=== PATIENT | male | born 1975 | race Caucasian/White ===

== ENCOUNTER 2018-06-03 10:43 | Emergency (ER) | payer OTHER ==
[~2018-06-03] VITALS: Ht 182.9 cm; Wt 104.3 kg
[2018-06-03] MEDS ORDERED: VENTOLIN HFA 1818 GM INH (11:04)
[2018-06-03] MEDS ORDERED: SPIRIVA INH (11:04)
[2018-06-03] MEDS ORDERED: VENLAFAXIN37.5 MG/1 PER TUBE (11:05)
[2018-06-03] MEDS ORDERED: EFFEXOR XR75 MG PO (11:05)
[2018-06-03 11:12] LABS: ABSOLUTE EOSINOPHILS 0.1 thou/uL (0.0-0.7); ABSOLUTE LYMPHOCYTES 1.8 thou/uL (0.8-5.3); ABSOLUTE MONOCYTES 0.5 thou/uL (0.0-1.2); ABSOLUTE NEUTROPHILS 2.8 thou/uL (1.6-8.1); BASOPHILS 0.7 %; EOSINOPHILS 1.9 %; HEMATOCRIT 47.3 % (42.0-52.0); HEMOGLOBIN 16.4 gm/dL (14.0-18.0); LYMPHOCYTES 35.5 %; MCH 32.2 pg (26.0-34.0); MCHC 34.7 g/dL (28.0-37.0); MCV 92.8 fL (80.0-100.0); MPV 6.7 fl. (7.2-11.1); NUCLEATED RBCS 0 /100WBC; PLATELET COUNT* 301 thou/uL (150-400); POLYS 52.9 %; RBC 5.09 mil/uL (4.50-6.00); RDW-CV 13.1 % (10.5-14.5); WBC 5.2 thou/uL (4.0-11.0)
[2018-06-03 11:24] LABS: URINE BILIRUBIN NEGATIVE (Negative); URINE BLOOD TRACE (Negative); URINE CLARITY CLEAR; URINE COLOR YELLOW; URINE GLUCOSE-RANDOM NEGATIVE (Negative); URINE KETONES 1+ (Negative); URINE LEUKOCYTES-REFLEX NEGATIVE (Negative); URINE NITRITE-REFLEX NEGATIVE (Negative); URINE PROTEIN 1+ (Negative); URINE UROBILINOGEN 0.2 E.U./dl (0.2-1.0)
[2018-06-03 11:31] LABS: ALBUMIN 4.1 g/dL (3.4-5.0); ALCOHOL 248 mg/dL (<10); CALCIUM 8.6 mg/dL (8.5-10.1); CREATININE 0.9 mg/dL (0.6-1.3); POTASSIUM 3.6 mmol/L (3.5-5.1); SALICYLATE 3.3 mg/dL (2.8-20.0); TOTAL BILIRUBIN 0.4 mg/dL (<0.1-1.0); TOTAL PROTEIN 7.9 g/dL (6.4-8.2)
[2018-06-03 11:32] LABS: ACETAMINOPHEN < 2 ug/mL (10-30)
[2018-06-03 11:32] LABS: AMP/METHAMP Negative (Negative); BARBITURATES Negative (Negative); BENZODIAZEPINES Negative (Negative); COCAINE Negative (Negative); METHADONE Negative (Negative); OPIATES Negative (Negative); PCP Negative (Negative); THC Negative (Negative)
[2018-06-04 16:16] VITALS: BP 130/83
== END 2018-06-04 16:15 | disposition still patient (30) ==
LOC: M.ERS 10:43
PROVIDERS: Emergency Medicine Emergency Medical Services
DX: R45.851 Suicidal ideations (principal); F32.9 Major depressive disorder, single episode, unspecified; F17.210 Nicotine dependence, cigarettes, uncomplicated; Z86.19 Personal history of other infectious and parasitic diseases; Z88.8 Allergy status to other drugs, medicaments and biological substances; Z79.899 Other long term (current) drug therapy

== ENCOUNTER 2018-06-14 11:49 | Observation (INO) | payer OTHER ==
[~2018-06-14] VITALS: Ht 182.9 cm; Wt 105.7 kg
[~2018-06-14 11:49] MED LIST: EFFEXOR XR75 MG PO; SPIRIVA INH; VENLAFAXIN37.5 MG/1 PER TUBE; VENTOLIN HFA 1818 GM INH
[2018-06-14 11:58] VITALS: BP 153/88
[2018-06-14 12:09] LABS: URINE BILIRUBIN NEGATIVE (Negative); URINE BLOOD TRACE (Negative); URINE CLARITY CLEAR; URINE COLOR YELLOW; URINE GLUCOSE-RANDOM NEGATIVE (Negative); URINE KETONES NEGATIVE (Negative); URINE LEUKOCYTES-REFLEX NEGATIVE (Negative); URINE NITRITE-REFLEX NEGATIVE (Negative); URINE PROTEIN 1+ (Negative); URINE SPECIFIC GRAVITY 1.025 (1.005-1.030); URINE UROBILINOGEN 0.2 E.U./dl (0.2-1.0)
[2018-06-14 12:16] LABS: ABSOLUTE EOSINOPHILS 0.2 thou/uL (0.0-0.7); ABSOLUTE LYMPHOCYTES 2.4 thou/uL (0.8-5.3); ABSOLUTE MONOCYTES 0.5 thou/uL (0.0-1.2); BASOPHILS 0.4 %; EOSINOPHILS 2.6 %; HEMOGLOBIN 15.9 gm/dL (14.0-18.0); LYMPHOCYTES 39.7 %; MCH 31.8 pg (26.0-34.0); MCHC 34.4 g/dL (28.0-37.0); MCV 92.5 fL (80.0-100.0); MONOCYTES 8.4 %; MPV 6.7 fl. (7.2-11.1); NUCLEATED RBCS 0 /100WBC; PLATELET COUNT* 350 thou/uL (150-400); POLYS 48.9 %; RBC 4.98 mil/uL (4.50-6.00); RDW-CV 13.5 % (10.5-14.5); WBC 6.1 thou/uL (4.0-11.0)
[2018-06-14 12:17] LABS: AMP/METHAMP Negative (Negative); BARBITURATES Negative (Negative); BENZODIAZEPINES POSITIVE (Negative); COCAINE Negative (Negative); METHADONE Negative (Negative); OPIATES Negative (Negative); PCP Negative (Negative); THC Negative (Negative)
[2018-06-14 12:32] LABS: ALBUMIN 3.7 g/dL (3.4-5.0); CALCIUM 8.8 mg/dL (8.5-10.1); CREATININE 0.9 mg/dL (0.6-1.3); POTASSIUM 3.8 mmol/L (3.5-5.1); TOTAL BILIRUBIN 0.2 mg/dL (<0.1-1.0); TOTAL PROTEIN 7.7 g/dL (6.4-8.2)
[2018-06-14 13:08] LABS: ALCOHOL 363 mg/dL (<10); SALICYLATE < 2.8 mg/dL (2.8-20.0)
[2018-06-14 13:15] LABS: ACETAMINOPHEN < 2 ug/mL (10-30)
--- NOTE | 2018-06-14 17:37 | NUR ---
RESEARCH PSYCH RESTAURANT MANAGER IN TO SEE PT.
[2018-06-15] VITALS (15 sets, daily range): BP systolic 128–159; BP diastolic 82–96
--- NOTE | 2018-06-15 04:10 | NUR ---
INSERTED 18 GUAGE SALINE LOCK IN RIGHT WRIST, ATTEMPT X1. 2 MG IV ATIVAN GIVEN FOR ETOH WITHDRAWEL. CIWA SCIRE >12
--- NOTE | 2018-06-15 06:28 | NUR ---
PT ADMITTED TO ICU AT 0500 FOR SUICIDAL IDEATION AND ETOH WITHDRAWEL. REPORT RECIEVED FROM AKASH YEE RN IN ED. POLICE WERE SUMMONED TO PT'S HOME VIA PHONE CALL FROM FRIEND WHO RECIEVED CALL FROM PATIENT STATING HE WATED TO SHOOT HIMSELF IN THE HEAD. PT IN ED SINCE NOON 06/14/18. PSYCH SHEEP BONER EVALUATED PATIEN IN ED AND APPROVED FOR PLACEMENT. PT AWAITING PLACEMENT IN ED WITH ONE TO ONE OBSERVATION AND SUICIDE PRECAUTIONS. AT 0350 PT AWAKE AND REPORTED FEELING TERRIBLE. PT GIVEN 2 MG IV ATIVAN FOR ELEVATED CIWA SCORE. PT SLEEPING UPON ARRIVAL. AROUSES TO VOICE AND RESPONDS APPROPRIATELY. PT PLEASANT AND COOPERATIVE, FOLLOWS COMMANDS. WHEN ASKED IF HE FELT SUICIDAL PT RESPONDED " NO, NOT REALLY". PT DENIED PLAN. ONE TO ONE MAINTAINED AT BEDSIDE PER SUICIDE PRECAUTIONS, PROTOCOL AND ORDERS. PT SLEEPING SINCE ADMIT. SINUS RHYTHM ON MONITOR. BEHAVIORAL TRAY ORDERED PER ORDERS. SAFE ENVIRONMENT MAINTAINED.
--- NOTE | 2018-06-15 10:22 | NUR ---
Received referrals to assist with d/c planning. Spoke with intake at [facility] and faxed requested clinical information. Will await return call re: bed availability and acceptance.
[2018-06-15] MEDS ORDERED: WELLBUTRIN 75 M75 M1 PO (17:34)
--- NOTE | 2018-06-15 19:12 | NUR ---
PATIENT CIWAS REMAIN BELOW 12, AXOX4, ASSESSMENT CHARTED. NAUSEATED AT TIMES BUT IMPROVES WITH ZOFRAN AND ATIVAN. GAVE SELF BATH. M/S TELE STATUS. PSYCH RECOMMENDS INVOLUNTARY COMMITMENT TO INPATIENT PSYCH WHEN MEDICALLY STABLE. BED IN LOWEST POSITON, CALL LIGHT IN REACH.
[2018-06-16 00:20] VITALS: BP 155/95
[2018-06-16 04:00] VITALS: BP 131/87
--- NOTE | 2018-06-16 06:35 | NUR ---
CIWA IS 8.VITALLY STABLE.STILL WITH HAND TREMORS WHEN IN STRAIGHT ARMS.LUDENS GIVEN FOR COUGH.
--- NOTE | 2018-06-16 12:04 | EKG ---
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
[2018-06-16 12:40] VITALS: BP 131/82
[2018-06-16 16:45] VITALS: BP 136/86
--- NOTE | 2018-06-16 18:11 | NUR ---
PATIENT IS ALERT AND ORIENTED TODAUY VERY PLEASANT. UP AD MANSOOR IN ROOM. SITTER IN ROOM. NO TALK OF SELF HARM TODAY, PATIENT IS WANTING TO GO HOME AND SEEK HELP OUTSIDE. [facility] STATES UNDERSTANDING BUT PREFERS TO GO HOME. VITAL SIGNS HAVE BEEN STABLE ON ROOM AIR. HAS TREMORS, VITAL SIGNS STABLE AND NO HALLUNICATIONS. CALL LIGHT IS IN REACH, WILL CONTINUE TO MONITOR.
[2018-06-16 20:00] VITALS: BP 125/67
[2018-06-17] VITALS: BP 145/99
--- NOTE | 2018-06-17 06:45 | NUR ---
ASSUMED PT CARE AT 1930. PT ALERT AND ORIENTED X4, POLITE AND COOPERATIVE WITH CARES. PT UP AD MANSOOR IN ROOM. SITTER IN ROOM. NO TALK OF SELF HARM. PT WANTED TO TALK ABOUT HIS EXPERIENCE IN [facility]. VITAL SIGNS STABLE. SALINE LOCK TO RIGHT HAND. NO HALLUCINATIONS. NO TREMORS NOTED. VOIDS PER BATHROOM. PRN ATIVAN TWICE THIS SHIFT. HOURLY ROUNDING COMPLETED. CALL LIGHT WITHIN REACH, WILL CONTINUE TO MONITOR.
--- NOTE | 2018-06-17 08:30 | NUR ---
PER NURSING SALES AND MERCHANDISING ASSOCIATE, HE CONTACTED [facility] YESTERDAY LOOKING FOR PLACEMENT WITH NO ONE ABLE TO ACCEPT. CASE MGT WILL CONTINUE TO LOOK FOR PLACEMENT TODAY.
[2018-06-17 14:37] VITALS: BP 145/99
--- NOTE | 2018-06-17 15:13 | NUR ---
SW following to assist with safe dc planning to inpt psych placement. SW called [facility] this morning and they said that had not found placement and then that they would be unable to accept today due to no bed available. SW called and faxed all other possible [place] inpt psych facilities willing to consider private pay: [facility] [phone] fax [phone]. Reviewing referral and have several other referrals ahead of pt. [facility] ph [phone] fax [phone]. Pending response on status of referral. [facility] [phone] fax [phone]. Pending response on status of referral. [facility] is at capacity for today and would be unable to accept. Paged [facility], received call back and there are no beds available for adults at this time. [facility] requires a $2500 deposit for private pay pts. [facility] ph [phone] fax [phone]. Pending response on status of referral. SW to continue to follow to assist with inpt psych placement.
[2018-06-17 16:00] VITALS: BP 146/95
--- NOTE | 2018-06-17 16:15 | NUR ---
ASSESSMENT COMPLETE. PT ALERT AND ORIENTED X4. PT HAS SITTER AT BEDSIDE. PT IV CAME OUT, PROVIDER AWARE OF NO IV. PT GIVEN ATIVAN NEEDED WELL IBUPROFEN AND TYLENOL FOR PAIN. PT IS UP STANDBY ASSIST. PT ABLE TO SHOWER TODAY. DENIES N/V. WHEEZING NOTED IN LUNGS. PT IS ON ROOM AIR. PT IS CURRENT DAY SMOKER. PT HAS NON PROD TIGHT COUGH. SEE ASSESSMENT AND VITALS FOR OTHER DETAILS. CALL LIGHT WITHIN REACH. SITTER AT BEDSIDE.
[2018-06-17 20:00] VITALS: BP 147/100
[2018-06-18 04:00] VITALS: BP 137/100
--- NOTE | 2018-06-18 06:23 | NUR ---
ASSESSMENT: PT REMAIN ALERT AND ORIENT FOR MOST OF THE SHIFT. PT ADMIT THAT SOMETIMES HE AWAKEN NOT KNOWING WHERE HE IS AND WHAT IS HAPPENING AROUND HIM. PT HAS FINE TREMORS AND IS DIAPHORETIC MOST TIMES. ADMITS TO A MILD RODRIGUEZ. 1:1 SITTER IS AT THE BEDSIDE. ATIVAN GIVEN ALONG WITH EITHER TYLENOL OR IBUPROPHEN. THIS COMBO SEEMS TO SETTLE PT'S ANXIETY AND HE SLEEPS FOR MOST OF THE TIME. UP WITH SBA TO BR. PT IS PLEASANT AND COOPERATIVE. SR-ST PER MONITOR. AT SHIFT CHANGE LAST NIGHT PT'S HR MAX'D AT 145. PT DID SUSTAIN BETWEEN 125-135 FOR ABOUT ON HOUR BEFORE THE HR DROPPED IN THE 80'S. PT HAS A VIOLENT NON-PRODUCTIVE COUGH. SLOW PROGRESS TOWARDS DC GOALS. WILL CONTINUE TO MONITOR.
[2018-06-18 09:30] VITALS: BP 131/95
--- NOTE | 2018-06-18 10:54 | NUR ---
SUPERVISOR CARPENTERS ASSISTING IN FINDING INPATIENT PSYCH PLACEMENT FOR PATIENT. D/C LOCAL SALES ASSOCIATE SPOKE TO INTAKE WITH: [facility]-'DECLINED PATIENT' THEY WERE INFORMED THAT THE 'PATIENT WAS NO LONGER SUICIDAL'. [facility]-'CURRENTLY AT CAPACITY, NO BEDS AVIALABLE'. [facility] INFORMS THAT 'PATIENT WAS DECLINED YESTERDAY D/T BED AVIALABLILITY, BUT WILL RE-REVIEW TODAY PENDING UPDATED NOTES AND FACILITY DISCHARGES'. [facility]- REQUEST A NEW REFERRAL BE SENT. THE PREVIOUS DAYS REFERRALS ARE SHREADED AT THE END OF THE DAY. [facility]-REQUEST NEW REFERRAL BE SENT. DID NOT RECIEVE REFERRAL YESTERDAY. [facility] [place]AMBRANO INFORMS THAT [facility] [place]ES LATER ON TODAY AND WILL REVIEW REFERRAL. CM WILL REMAIN AVAILABLE TO ASSIST AND FOLLOW NEEDED.
[2018-06-18 13:03] VITALS: BP 134/93
--- NOTE | 2018-06-18 15:18 | NUR ---
ASSUMED PT CARE AT 0700 PT IS ALERT AND ORIENTED X 4 PT HAS ANXIETY GAVE ATIVAN PT C/O PAIN GAVE TYLENOL, PT IS UP AD MANSOOR PT IS NOT A FALL RISK, PT IS SR ON THE MONITOR, PT CALLED OUT AROUND 1400 PT ANXIOUS GAVE PT ATIVAN, FOUND PLACEMENT FOR PT WHO IS CLEARED FOR DISCHARGE WILL CONTINUE TO MONITOR
[2018-06-18 15:32] VITALS: BP 145/99
== END 2018-06-18 16:30 ==
LOC: M.ERS 11:49 → M.TBA-ER 06-15 04:24 → M.ICU 06-15 04:24 → M.3W 06-15 04:24 → M.ICU 06-15 04:44 → M.3W 06-16 07:24
PROVIDERS: Family Medicine; ADMIT Internal Medicine
DX: R45.851 Suicidal ideations (principal); F10.10 Alcohol abuse, uncomplicated; J44.9 Chronic obstructive pulmonary disease, unspecified; B18.2 Chronic viral hepatitis C; I10 Essential (primary) hypertension; F32.9 Major depressive disorder, single episode, unspecified; F17.210 Nicotine dependence, cigarettes, uncomplicated; Z88.8 Allergy status to other drugs, medicaments and biological substances; Z79.899 Other long term (current) drug therapy